=== PATIENT | female | born 1975 | race African-American/Black ===

== ENCOUNTER 2016-06-28 04:20 | Emergency (ER) | payer OTHER ==
[~2016-06-28] VITALS: Ht 175.3 cm; Wt 90.7 kg
--- NOTE | ~2016-06-28 | EKG ---
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
[~2016-06-28 04:20] MED LIST: CARISOPRODOL; CARISOPRODOL 3350 MG PO; FLEXERIL PO; IBUPROFEN 200200 M1 PO; LISINOPRIL20 MG; LISINOPRIL20 MG PO; NABUMETONE 750750 M1 PO; NEURONTIN 300300 M1 PO; NOHOMEMEDICATIONS; NORCO 5-325 TA1 EACH PO; NORCO 7.5-3251 EACH PO; PENICILLIN VK500 M1 PO; PERCOCET 10-321 EACH; PERCOCET 5-3251 EACH PO; PREDNISONE 20 M20 M1 PO; PREDNISONE 20 M20 MG PO; PRINZIDE 20-121 EACH PO; RELAFEN750 MG PO; SAVELLA50 MG PO; TYLENOL W/CODEI1 TA2 PO
[2016-06-28 05:19] LABS: PLATELET COUNT 360 thou/uL (150-400)
[2016-06-28 05:20] LABS: HEMATOCRIT 24.9 % (37.0-47.0); HEMOGLOBIN 7.7 gm/dL (12.0-15.0); MCH 19.8 pg (26.0-34.0); MCV 63.7 fL (80.0-100.0); RDW 22.3 % (10.5-14.5); WBC 7.6 thou/uL (4.0-11.0)
[2016-06-28 05:22] LABS: ANION GAP 9 mmol/L (7-16); BUN 14 mg/dL (7-18); CALCIUM 8.6 mg/dL (8.5-10.1); CHLORIDE 104 mmol/L (98-107); CO2 23 mmol/L (21-32); CREATININE 0.9 mg/dL (0.6-1.0); GLUCOSE 95 mg/dL (74-106); MANUAL DIFF YES; POTASSIUM 3.8 mmol/L (3.5-5.1); SODIUM 136 mmol/L (136-145)
[2016-06-28 05:30] LABS: TROPONIN-I < 0.04 ng/mL (<0.04-0.07)
[2016-06-28 05:56] VITALS: BP 148/77
[2016-06-28 05:56] LABS: ABSOLUTE NEUTROPHILS 4.8 thou/uL (1.4-8.2); ANISOCYTOSIS 3+; TOTAL CELL COUNT 100
[2016-06-28 05:57] LABS: HYPOCHROMASIA 3+; MICROCYTES 3+; OVALOCYTES OCCASIONAL; POIKILOCYTOSIS SLIGHT; POLYCHROMASIA SLIGHT
== END 2016-06-28 06:01 | disposition home or self-care (01) ==
LOC: ER 04:20
PROVIDERS: Emergency Medicine
DX: R07.89 Other chest pain (principal); D64.89 Other specified anemias; I10 Essential (primary) hypertension; Z91.013 Allergy to seafood; F10.99 Alcohol use, unspecified with unspecified alcohol-induced disorder

== ENCOUNTER 2017-05-11 03:46 | Emergency (ER) | payer OTHER ==
[~2017-05-11] VITALS: Ht 175.3 cm; Wt 90.7 kg
[2017-05-11 03:53] VITALS: BP 155/107
[2017-05-11] MEDS ORDERED: NORFLEX100 MG PO (04:12)
[2017-05-30] MEDS ORDERED: IBUPROFEN 200200 M1 PO (09:35)
[2017-05-30] MEDS ORDERED: MULTI VITAMIN1 EACH PO (09:35)
== END 2017-05-11 04:37 | disposition home or self-care (01) ==
LOC: ER 03:46
DX: S86.012A Strain of left Achilles tendon, initial encounter (principal); I10 Essential (primary) hypertension; F10.99 Alcohol use, unspecified with unspecified alcohol-induced disorder; Z91.013 Allergy to seafood; X58.XXXA Exposure to other specified factors, initial encounter; Y93.89 Activity, other specified; Y92.89 Other specified places as the place of occurrence of the external cause; Y99.8 Other external cause status

== ENCOUNTER → 2017-05-17 | Outpatient (CLI) | payer OTHER ==
[~2017-05-17] MED LIST changes: +ASA5UEC PO; +MULTI VITAMIN1 EACH PO; +NORFLEX100 MG PO; +PERCOCET 7.5-31 EACH PO
== END ==
LOC: ULTRA 17:00
DX: S89.92XA Unspecified injury of left lower leg, initial encounter (principal); X58.XXXA Exposure to other specified factors, initial encounter; Y93.89 Activity, other specified; Y92.89 Other specified places as the place of occurrence of the external cause; Y99.8 Other external cause status

== ENCOUNTER 2017-06-03 05:12 | Day surgery (SDC) | payer OTHER ==
[~2017-06-03] VITALS: Ht 175.3 cm; Wt 106.1 kg
--- NOTE | ~2017-06-03 | O ---
[facility] [place] [address] OPERATIVE REPORT Name: NAKITA LUNSFORD Room #: 150-2 [facility]..#: [id number] Admission: 06/03/17 Attend Phys: Jimi Murray MD Discharge: Date of : 77 Report #: [id number] THIS REPORT FOR: //name// CC: Jimi Alickson DATE OF SERVICE: 06/03/2017 PREOPERATIVE DIAGNOSIS: Left Achilles tendon rupture. POSTOPERATIVE DIAGNOSIS: Left Achilles tendon rupture. PROCEDURE: Left Achilles tendon repair. SURGEON: Jimi Murray M.D. PRESS SECRETARY: CHA Smith. ANESTHESIA: General. ESTIMATED BLOOD LOSS: Minimal. DRAINS: No drains. TOURNIQUET TIME: 45 minutes. DESCRIPTION OF PROCEDURE: The patient brought to the operating room where she was placed under general anesthesia. Once under adequate general anesthesia, she was placed into a prone position on the operative table. The patient's left lower extremity was then prepped and draped in sterile manner. The extremity was elevated, exsanguinated, tourniquet placed to 300 mmHg. A posterior medial Achilles tendon incision was then made to dissect down through the soft tissue to the paratenon, which was then incised exposing the Achilles tendon rupture. The hematoma was evacuated and the 2 tendon ends were then freed from any surrounding soft tissue. There was a large gap due to the length of time from her tear to the repair. Once mobilized, the 2 tendon ends were then suture repaired with #5 FiberWire suture with a 4-strand Bunnel type technique. Excellent repair was achieved in this manner. Once complete, the wound was irrigated copiously and closed with 2-0 Vicryl in the paratenon, 2-0 Vicryl in subcutaneous tissues and kassandra were used for the skin. The wounds were dressed with Xeroform, 4 x 4s, and sterile soft compressive dressing with a short leg cast placed in plantar flexion was made and placed. Tourniquet was let down at 45 minutes. Toes were pink and warm with good capillary refill. [facility] [address] [place] [address] OPERATIVE REPORT Name: NAKITA LUNSFORD Room #: 150-2 [facility]..#: [id number] Admission: 06/03/17 Attend Phys: Jimi Murray MD Discharge: Date of : 77 Report #: [id number] There were no complications from the procedure. The patient tolerated the procedure well and went to the recovery room without incident. By: 1605 1700 Jimi Murray MD /nt
[~2017-06-03 05:12] MED LIST changes: -ASA5UEC PO; -PERCOCET 7.5-31 EACH PO
[2017-06-03 13:49] VITALS: BP 155/85
[2017-06-03] MEDS ORDERED: ASA5UEC PO (15:59)
[2017-06-03] MEDS ORDERED: PERCOCET 7.5-31 EACH PO (15:59)
[2017-06-03 16:52] VITALS: BP 155/85
== END 2017-06-03 17:52 | disposition home or self-care (01) ==
LOC: TBA 05:12 → OR 05:12 → TBA 05:13 → OR 07:07
DX: S86.012A Strain of left Achilles tendon, initial encounter (principal); Z98.890 Other specified postprocedural states; Z86.2 Personal history of diseases of the blood and blood-forming organs and certain disorders involving the immune mechanism; Z87.891 Personal history of nicotine dependence; Z79.82 Long term (current) use of aspirin; Z79.891 Long term (current) use of opiate analgesic; X58.XXXA Exposure to other specified factors, initial encounter; Y93.89 Activity, other specified; Y92.89 Other specified places as the place of occurrence of the external cause; Y99.8 Other external cause status
CPT/HCPCS: 50010; 50101; 50386; 51412; 52120; 56524; 56525; 56527; 56531; 57091; 62110; 62900; 70005

== ENCOUNTER → 2018-02-13 | Outpatient (CLI) | payer OTHER ==
[~2018-02-13] VITALS: Ht 175.3 cm; Wt 99.8 kg
[~2018-02-13] MED LIST changes: +ASA5UEC PO; +LISINOPRIL-HCT1 EACH PO; +PERCOCET 7.5-31 EACH PO
--- NOTE | ~2018-02-13 | PATH ---
[facility] [place] [address] PATHOLOGY RPT PROCEDURE Name: NAKITA SORIANO Camila Room #: REG [facility].#: [id number] Admission: 02/13/18 Date of : 77 Discharge: Report #: [id number] Path Case #: [id number] [facility] Accession Number: [id number] . 01 Material submitted: . PART A: SMALL BOWEL BIOPSY PART B: COLON POLYP SPLENIC FLEXURE PART C: COLON POLYP RECTO SIGMOID X6 PART D: RECTAL POLYPS X12 . 01 Clinical history: . Anemia Colon polyps A: Rule out celiac . 02 Diagnosis: A. Small bowel mucosa, small bowel rule out celiac, endoscopic biopsy: - No significant diagnostic abnormalities present. - Negative for villous blunting or increase in intraepithelial lymphocytes. . B. Polyp, splenic flexure, endoscopic biopsy: - Inflammatory polyp with hyperplastic changes. - Negative for dysplasia. . C. Polyp x 6, rectosigmoid, endoscopic biopsy: - One fragment showing a tubular adenoma without high grade dysplasia. - Remainder of fragments showing hyperplastic polyps without dysplasia. . D. Polyps x 12, rectal, endoscopic biopsy: - All fragments showing hyperplastic polyp. - Negative for dysplasia. (IUV/db; 02/14/18) LBQ/02/14/2018 . 02 Electronically signed: . Ginna Ruiz MD, Pathologist NPI- [id number] . 01 Gross description: . A. The specimen is received in formalin, labeled "Nakita Soriano, small bowel biopsy" and consists of multiple fragments of soft jon tissue measuring 1.2 x 0.6 x 0.2 cm in aggregate which are entirely submitted in A1. . B. The specimen is received in formalin, labeled "Nakita Soriano, colon polyp splenic flexure" and consists of a polypoid/pedunculated segment of [address], [place] [address] PATHOLOGY RPT PROCEDURE Name: NAKITA SORIANO R Room #: REG CLI [facility].#: [id number] Admission: 02/13/18 Date of : [birth year] Discharge: Report #: [id number] Path Case #: [id number] pink-brown tissue measuring 1.4 x 1.3 x 1.1 cm (stalk 0.4 cm in length and 0.5 cm in diameter). The margin is inked black. It is serially sectioned and entirely submitted in B1-B2. . C. The specimen is received in formalin, labeled "Fuselier, Kelise, colon polyps rectosigmoid x6" and consists of multiple fragments of jon tissue measuring 1.6 x 1.0 x 0.2 cm in aggregate which are entirely submitted in C1. . D. The specimen is received in formalin, labeled "Fuselier, Kelise, rectal polyps x12" and consists of multiple fragments of soft jon tissue measuring 1.6 x 0.9 x 0.3 cm in aggregate which are entirely submitted in D1. (SDY; 02/13/2018) SYU/SYU . 02 Pathologist provided ICD-10: K51.40, D12.7, K62.1 . 02 CPT . 926709, 549975, 232561, 308506 Specimen Comment: A courtesy copy of this report has been sent to Specimen Comment: [phone], . Specimen Comment: Report sent to Performed at: [address], [place] [id number] MD David Robertson MD Phone: [phone] Performed at: [address] [id number] MD Ginna Ruiz MD Phone: [phone]
== END | disposition home or self-care (01) ==
LOC: GI 08:13
DX: D50.9 Iron deficiency anemia, unspecified (principal); D12.7 Benign neoplasm of rectosigmoid junction; K63.5 Polyp of colon; I10 Essential (primary) hypertension; E78.00 Pure hypercholesterolemia, unspecified; K21.9 Gastro-esophageal reflux disease without esophagitis; F17.210 Nicotine dependence, cigarettes, uncomplicated; Z79.899 Other long term (current) drug therapy; Z87.19 Personal history of other diseases of the digestive system; Z98.890 Other specified postprocedural states; Z79.82 Long term (current) use of aspirin
CPT/HCPCS: 62110; 62900

== ENCOUNTER 2018-05-23 19:20 | Emergency (ER) | payer OTHER ==
[~2018-05-23] VITALS: Ht 175.3 cm; Wt 99.8 kg
[2018-05-23 20:24] LABS: URINE BILIRUBIN NEGATIVE (Negative); URINE BLOOD NEGATIVE (Negative); URINE CLARITY CLEAR; URINE SPECIFIC GRAVITY <= 1.005 (1.005-1.035)
[2018-05-23 20:31] LABS: URINE COLOR ORANGE; URINE LEUKOCYTES-REFLEX 2+ (Negative); URINE NITRITE-REFLEX POSITIVE (Negative)
[2018-05-23 20:32] LABS: URINE KETONES NEGATIVE (Negative)
[2018-05-23 20:34] LABS: SQUAMOUS 4-10 Moderate /LPF (0-3)
[2018-05-23 20:38] LABS: CASTS None Seen /LPF (None Seen); URINE RBC None Seen /HPF (0-2); URINE WBC-REFLEX 6-15 Few /HPF (0-5)
[2018-05-23 20:39] LABS: CRYSTALS None Seen /LPF (None Seen)
[2018-05-23] MEDS ORDERED: FLAGYL500 M1 PO (20:55)
[2018-05-23] MEDS ORDERED: MACROBID 100 M100 M1 PO (20:55)
[2018-05-23] MEDS ORDERED: PHENAZOPYRIDIN200 M2 PO (20:56)
[2018-05-23 21:11] VITALS: BP 146/83
== END 2018-05-23 21:11 | disposition home or self-care (01) ==
LOC: ER 19:20
PROVIDERS: Physician Assistant
DX: N39.0 Urinary tract infection, site not specified (principal); A59.9 Trichomoniasis, unspecified; I10 Essential (primary) hypertension; Z91.013 Allergy to seafood

== ENCOUNTER 2018-06-11 06:22 | Emergency (ER) | payer OTHER ==
[~2018-06-11] VITALS: Ht 175.3 cm; Wt 99.8 kg
[~2018-06-11 06:22] MED LIST changes: +FLAGYL500 M1 PO; +MACROBID 100 M100 M1 PO; +PHENAZOPYRIDIN200 M2 PO
[2018-06-11] MEDS ORDERED: CIPRO250 M1 PO (06:35)
[2018-06-11] MEDS ORDERED: DIOVAN HCT 1601 EAC1 PO (06:35)
[2018-06-11] MEDS ORDERED: SLOW FE142 MG PO (06:36)
[2018-06-11 06:45] LABS: ABSOLUTE NEUTROPHILS 4.7 thou/uL (1.4-8.2); BASOPHILS 1.6 % (0.0-2.0); EOSINOPHILS 1.9 % (0.0-3.0); HEMATOCRIT 32.4 % (37.0-47.0); HEMOGLOBIN 10.3 gm/dL (12.0-15.0); LYMPHOCYTES 33.1 % (24.0-44.0); MCH 25.8 pg (26.0-34.0); MCHC 31.8 g/dL (28.0-37.0); MCV 81.1 fL (80.0-100.0); MONOCYTES 5.6 % (1.0-8.0); PLATELET COUNT 198 thou/uL (150-400); POLYS 57.8 % (36.0-66.0); RBC 3.99 mil/uL (4.20-5.00); RDW 20.7 % (10.5-14.5); WBC 8.2 thou/uL (4.0-11.0)
[2018-06-11 06:51] LABS: ANION GAP 12 mmol/L (7-16); BUN 24 mg/dL (7-18); CALCIUM 9.4 mg/dL (8.5-10.1); CHLORIDE 100 mmol/L (98-107); CO2 27 mmol/L (21-32); CREATININE 0.9 mg/dL (0.6-1.0); GLUCOSE 108 mg/dL (74-106); POTASSIUM 3.5 mmol/L (3.5-5.1); SODIUM 139 mmol/L (136-145)
[2018-06-11 07:00] LABS: TROPONIN-I <0.06 ng/mL (<0.06)
[2018-06-11 08:13] LABS: ANISOCYTOSIS 2+; OVALOCYTES OCCASIONAL
[2018-06-11] MEDS ORDERED: ASPIRIN EC325 MG PO (08:43)
[2018-06-11 09:10] VITALS: BP 141/79
--- NOTE | 2018-06-11 23:49 | EKG ---
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 : 1975 Requested By: Obi Keith Order Number: [id number] MD: Mickey Perez Measurements Intervals [place] Rate: 72 P: 54 DC: 161 QRS: 52 QRSD: 89 T: 54 QT: 414 QTc: 454 Interpretive Statements Sinus rhythm Early transition Baseline wander Compared to ECG 06/28/2016 04:35:18 no significant changes Electronically Signed On 06-11-2018 23:48:54 CDT by Mickey Perez [email or web address] ��������������������������������������������� <ELECTRONICALLY SIGNED> ���������������������������������������� By: Mickey Perez MD ��������������������������������������������� 06/11/18 2348 0632 0632 Mickey Perez MD /STEVAN
== END 2018-06-11 09:10 | disposition home or self-care (01) ==
LOC: ER 06:22
PROVIDERS: Emergency Medicine
DX: R07.89 Other chest pain (principal); I10 Essential (primary) hypertension; Z91.013 Allergy to seafood

== ENCOUNTER → 2018-06-15 | Outpatient (CLI) | payer OTHER ==
[~2018-06-15] MED LIST changes: +ASPIRIN EC325 MG PO; +CIPRO250 M1 PO; +DIOVAN HCT 1601 EAC1 PO; +SLOW FE142 MG PO
== END ==
LOC: NUC 06:55
DX: R07.9 Chest pain, unspecified (principal); R00.2 Palpitations; R06.00 Dyspnea, unspecified; I10 Essential (primary) hypertension; E78.5 Hyperlipidemia, unspecified; Z87.891 Personal history of nicotine dependence

== ENCOUNTER 2019-03-13 20:08 | Inpatient (IN) | payer OTHER ==
[~2019-03-13] VITALS: Ht 175.3 cm; Wt 100.8 kg
[2019-03-13 20:09] VITALS: BP 117/81
[2019-03-13 20:54] LABS: BASOPHILS 0.7 % (0.0-2.0); EOSINOPHILS 0.8 % (0.0-3.0); HEMOGLOBIN 13.3 gm/dL (12.0-15.0); LYMPHOCYTES 14.5 % (24.0-44.0); MCH 26.9 pg (26.0-34.0); MCHC 31.6 g/dL (28.0-37.0); MCV 85.3 fL (80.0-100.0); MONOCYTES 1.6 % (1.0-8.0); PLATELET COUNT 397 thou/uL (150-400); POLYS 82.4 % (36.0-66.0); RBC 4.92 mil/uL (4.20-5.00); RDW 19.2 % (10.5-14.5); WBC 13.3 thou/uL (4.0-11.0)
[2019-03-13 21:06] LABS: ANION GAP 13 mmol/L (7-16); BUN 18 mg/dL (7-18); CALCIUM 10.4 mg/dL (8.5-10.1); CHLORIDE 95 mmol/L (98-107); CO2 26 mmol/L (21-32); CREATININE 1.9 mg/dL (0.6-1.0); GLUCOSE 134 mg/dL (74-106); POTASSIUM 3.3 mmol/L (3.5-5.1); SODIUM 134 mmol/L (136-145)
[2019-03-13 21:10] LABS: APTT 23.2 Seconds (24.5-32.8); PROTIME 10.4 Seconds (9.3-11.4)
[2019-03-13 21:17] LABS: ALBUMIN 4.5 g/dL (3.4-5.0); MAGNESIUM 1.9 mg/dL (1.8-2.4); SGOT 151 U/L (15-37); SGPT 157 U/L (30-65); TOTAL BILIRUBIN 0.8 mg/dL (<0.1-1.0); TOTAL PROTEIN 9.8 g/dL (6.4-8.2); TROPONIN-I <0.06 ng/mL (<0.06)
[2019-03-13 23:45] VITALS: BP 121/70
[2019-03-14] VITALS (10 sets, daily range): BP systolic 119–1471; BP diastolic 61–85
--- NOTE | 2019-03-14 06:39 | NUR ---
PT ARRIVED VIA WHEELCHAIR FROM ER. ADMISSION, INTERVENTIONS, MED REC, ALLERGIES, AND CARE PLAN ALL COMPLETED. FOLLOWING POC WITH IVF GTT. PT CALLED OUT ONE TIME FOR PAIN MEDICATION THAT WAS DESCRIBED IN THE CHEST THAT RADIATED TO THE BACK. GOOD RESULTS WITH THE PAIN MEDICATION. PT UP AD MAMI, VSS STABLE, TELE SHOWS SR. HEART RATES ARE 80'S. HOURLY ROUNDING.
[2019-03-14 09:10] LABS: CREATININE 1.1 mg/dL (0.6-1.0); POTASSIUM 3.8 mmol/L (3.5-5.1)
--- NOTE | 2019-03-14 15:22 | NUR ---
Assumed care approx. 0700 this AM. Pt taken down to nuclear med then Dr. Neal called and said he wanted to cancel the scan since her creatnine was up so Dr. Neal called nuc med and cancelled the scan. A CTA was completed instead. Pt has had no complaints of chest pain, just lower back pain. Pt had some nausea and slight vomiting x1 this AM. IV zofran given with relief. Maintenance fluids infusing. No acute changes noted thus far. Will continue to monitor. Pt progressing toward plan of care goals.
[2019-03-15 01:35] LABS: AMP/METHAMP Negative (Negative); BARBITURATES Negative (Negative); BENZODIAZEPINES Negative (Negative); COCAINE Negative (Negative); METHADONE Negative (Negative); OPIATES Negative (Negative); PCP Negative (Negative)
[2019-03-15 03:55] VITALS: BP 136/84
--- NOTE | 2019-03-15 04:43 | NUR ---
DENIES CHEST PAIN, SHE STATED THAT SHE HAS ONLY HAD TIGHTNESS WHEN UP TO THE RESTROOM. CONTINUES ON IV FLUIDS. CAREPLAN REVIWED. NPO SINCE 03/14. SHE IS READY FOR HER STRESS TEST THIS AM. NO CAFFIENE CONSUMED IN THE PAST 24 HOURS.
[2019-03-15 07:50] VITALS: BP 142/80
[2019-03-15 12:11] VITALS: BP 144/88
--- NOTE | 2019-03-15 12:43 | EXE ---
[facility] [place] [address] STRESS ECHOCARDIOGRAM Name: NAKITA LUNSFORD Room #: 359-P [facility] ..#: [id number] Admission: 03/13/19 Attend Phys: Blair Neal, Discharge: Date of : 77 Report #: [id number] THIS REPORT FOR: //name// APPROVED REPORT Study performed: 03/15/2019 10:59:43 Exam: Stress Echocardiogram Indication: Chest pain Patient Location: Echo lab Stress Nurse: Yahaira Oleary RN Room #: 359 Status: routine Ht: 5 ft 9 in HR: 70 bpm BP: 136/88 mmHg Rhythm: NSR Medical History Medical History: HTN Cardiac Risk Factors: FHX of CAD, HTN Exercise History: Indeterminate Procedure The patient underwent an Exercise Stress Test using the Parker Protocol. Blood pressure, heart rate, and EKG were monitored. An Echocardiogram was performed by windows deployment technician in four stages in quad fashion. At peak stress, four selected images were obtained and placed side by side with resting images for comparison. Stress Test Details Stress Test: Exercise stress testing was performed using a Parker protocol. HR Resting HR: 70 bpm Max Heart Rate (APMHR): 178 bpm Max HR Achieved: 166 bpm Target HR (85% APMHR): 151 bpm % of APMHR: 93 Recovery HR: 88 bpm HR response to stress: Normal HR response to stress BP Resting BP: 136/88 mmHg Max BP: 202/92 mmHg Recovery BP: 140/74 mmHg BP response to stress: Normal blood pressure response to [facility] [address] [place] [address] STRESS ECHOCARDIOGRAM Name: NAKITA LUNSFORD [facility] Room #: 359-P [facility]#: [id number] Admission: 03/13/19 Attend Phys: Blair Neal, Discharge: Date of : 77 Report #: [id number] stress. ECG Resting ECG: Sinus Rhythm Stress ECG: Sinus Tachycardia Recovery ECG: Sinus Rhythm Clinical Reason for Termination: Chest tightness Stress Symptoms: Chest tightness Exercise duration: 6 min sec Highest Stage Achieved: Stage 2: 2.5 mph at 12% grade. Exercise capacity: 7.2 METs Overall Exercise Capacity for Age: Average Stress ECG Conclusion 1. Subjectively negative for ischemia 2. Cardiac negative for ischemia 2. Average functional capacity Pre-Stress Echo The resting Echocardiogram showed normal left ventricular contractility with an estimated Ejection Fraction of about >55%. The resting echocardiogram demonstrated normal wall motion in all wall segments. Post-Stress Echo The stress Echocardiogram showed normal left ventricular contractility with an estimated Ejection Fraction of about 65-70%. Compared to rest, there were no stress-induced wall motion abnormalities. Conclusion Clinical Response: Non-ischemic Exercise Capacity: Average Stress ECG Response: Non-ischemic 1. Low risk study No prior study available for comparison. Other Information Study Quality: Good [facility] [address] [place] [address] STRESS ECHOCARDIOGRAM Name: NAKITA LUNSFORD Room #: 359-P ADM IN M.R.#: [id number] Admission: 03/13/19 Attend Phys: Blair Neal, Discharge: Date of : 77 Report #: [id number] <Conclusion> 1. Low risk study <ELECTRONICALLY SIGNED> By: Mickey Perez MD 03/15/19 1242 1242 124 Mickey Perez MD /INF
[2019-03-15 15:18] VITALS: BP 144/88
[2019-03-15 15:35] VITALS: BP 134/82
--- NOTE | 2019-03-15 17:13 | EKG ---
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
--- NOTE | 2019-03-15 19:10 | NUR ---
PT DENIES CHEST PAIN THIS AFTERNOON...VSS...PLANS TO DISCHARGE TO HOME WITH DAUGHTER @ 1900...GIVEN RET TO WORK NOTE FOR SAT 03/17/19..
== END 2019-03-15 19:23 | disposition home or self-care (01) | DRG 313 ==
LOC: ER 20:08 → 3W 21:49 → EROBS 21:49 → 3W 03-14 00:25
PROVIDERS: Emergency Medicine; ADMIT Family Medicine
DX: R07.9 Chest pain, unspecified (principal); I10 Essential (primary) hypertension; E87.6 Hypokalemia; Z91.013 Allergy to seafood; Z87.891 Personal history of nicotine dependence; Z79.899 Other long term (current) drug therapy
CPT/HCPCS: 10879

== ENCOUNTER → 2019-11-20 | Outpatient (CLI) | payer OTHER | LOC: LAB 10:55 | PROVIDERS: ATTEND Nurse Practitioner | DX: R06.02 Shortness of breath (principal); R05 Cough; R51 Headache; Z20.828 Contact with and (suspected) exposure to other viral communicable diseases ==

== ENCOUNTER → 2020-05-27 | Outpatient (CLI) | payer OTHER | LOC: MRI 10:20 | PROVIDERS: ATTEND Physical Medicine & Rehabilitation Sports Medicine | DX: M48.061 Spinal stenosis, lumbar region without neurogenic claudication (principal); M51.16 Intervertebral disc disorders with radiculopathy, lumbar region; M47.26 Other spondylosis with radiculopathy, lumbar region; M51.36 Other intervertebral disc degeneration, lumbar region; M25.78 Osteophyte, vertebrae; M46.06 Spinal enthesopathy, lumbar region ==

== ENCOUNTER → 2020-06-20 | Outpatient (CLI) | payer OTHER | LOC: LAB 14:27 | PROVIDERS: ATTEND Anesthesiology | DX: Z01.812 Encounter for preprocedural laboratory examination (principal); Z20.822 Contact with and (suspected) exposure to COVID-19 ==

== ENCOUNTER 2020-09-22 15:30 | Emergency (ER) | payer OTHER ==
[~2020-09-22] VITALS: Ht 175.3 cm; Wt 102.1 kg
[2020-09-22] MEDS ORDERED: BUTALB-APAP-CA1 EACH PO (16:54)
[2020-09-22] MEDS ORDERED: PENICILLIN V P500 MG PO (16:54)
[2020-09-22 17:11] VITALS: BP 146/96
== END 2020-09-22 17:17 | disposition home or self-care (01) ==
LOC: ER 15:30
DX: K08.89 Other specified disorders of teeth and supporting structures (principal); R51.9 Headache, unspecified; I10 Essential (primary) hypertension; Z20.822 Contact with and (suspected) exposure to COVID-19; Z98.890 Other specified postprocedural states; Z79.899 Other long term (current) drug therapy; Z91.013 Allergy to seafood; Z87.891 Personal history of nicotine dependence

== ENCOUNTER 2021-01-06 05:10 | Emergency (ER) | payer OTHER ==
[~2021-01-06] VITALS: Ht 175.3 cm; Wt 97.5 kg
[~2021-01-06 05:10] MED LIST changes: +BUTALB-APAP-CA1 EACH PO; +PENICILLIN V P500 MG PO
[2021-01-06] MEDS ORDERED: VALSARTAN-HCTZ1 EAC2 PO (05:31)
[2021-01-06] MEDS ORDERED: NORFLEX100 MG PO (05:31)
[2021-01-06 05:34] VITALS: BP 177/90
== END 2021-01-06 05:34 | disposition home or self-care (01) ==
LOC: ER 05:10
DX: M54.50 Low back pain, unspecified (principal); I10 Essential (primary) hypertension; Z98.890 Other specified postprocedural states; Z79.891 Long term (current) use of opiate analgesic; Z79.899 Other long term (current) drug therapy; Z91.013 Allergy to seafood; Z87.891 Personal history of nicotine dependence